=== PATIENT | male | born 1990 | race Caucasian/White ===

== ENCOUNTER 2018-04-04 09:50 | Emergency (ER) | payer OTHER ==
[~2018-04-04] VITALS: Ht 195.6 cm; Wt 140.6 kg
[2018-04-04] MEDS ORDERED: IBUPROFEN 800800 M1 PO (11:05)
[2018-04-04 11:19] VITALS: BP 148/88
== END 2018-04-04 11:21 | disposition home or self-care (01) ==
LOC: M.ERS 09:50
DX: S89.81XA Other specified injuries of right lower leg, initial encounter (principal); X58.XXXA Exposure to other specified factors, initial encounter; Y93.67 Activity, basketball; Y92.89 Other specified places as the place of occurrence of the external cause; Y99.8 Other external cause status